=== PATIENT | female | born 1965 | race Two or more races ===

== ENCOUNTER 2017-02-19 16:55 | Emergency (ER) | payer MEDICAID ==
--- NOTE | 2017-02-19 16:59 | ED Physician Chart ---
Chief Complaint/HPI - Patient Information Date Seen:: 02/19/17 Time Seen:: 16:55 Chief Complaint:: Left facial injury early this morning. History of Present Illness:: Brought in by private auto because pt sustained L facial injury at about 0230 today. Pt fell on the street because she lost her balance when her L knee stiffened due to pain. No LOC. No other bodily injury or pain. No visual changes in terms of blurry vision or diplopia. No N/V. No weakness or numbness. No ataxia. Allergies:: NKA Vitals:: see Nurse Note. Historian:: Patient Family MD/PCP:: Dr. Kim LMP:: Postmenopausal Review:: Nurse's Note Reviewed Review of Systems - Review of Systems General/Constitutional: No fever, No weakness, No edema, No loss of appetite Skin: Bruising ( at L infraorbital region.) Head: No headache, No light-headedness Eyes: No loss of vision, No pain, No diplopia ENT: No earache, No nasal drainage, No sore throat, No tinnitus Neck: No neck pain, No swelling, No stiffness, No mass noted Cardio Vascular: No chest pain, No palpitations, No edema Pulmonary: No SOB, No cough, No wheezing GI: No nausea, No vomiting, No pain G/U: No dysuria, No hematuria Musculoskeletal: Bone or joint pain (L knee), No back pain Psychiatric: No prior psych history Hematopoietic: No lymphadenopathy Allergic/Immuno: No urticaria, No angioedema Neurological: No syncope, No focal symptoms, No weakness, No paresthesia, No headache, No seizure, No confusion, No vertigo Past Medical History - Past Medical History Past Medical History: No significant medical hx Family History: None Social History: Non Smoker, Alcohol (occasional), No Drug Use, , Lives Alone, Employed Employment:: [employer]. Surgical History: (x 3 with last one '06.) Medication: Reviewed Family Medical History - Family Member Mother History Unknown: Yes Physical Exam - Physical Examination General/Constitutional: Awake, Well-developed, well-nourished, Alert, No distress, GCS 15, Non-toxic appearing, Ambulatory Other Gen/Cons comments:: Breathes comfortably, speaks clearly, interacts normally, and ambulates without difficulty. Other Head comments:: There is L periorbital ecchymosis with mild tenderness at infraorbital region. No open wound, erythema, or bony tapering. No gross deformity or any significant swelling. Eyes: Lids, conjuctiva normal, PERRL, EOMI Other Eyes comments:: Fundi: flat disks. Skin: Well hydrated, No lymphadenopathy ENMT: External ears, nose nl, TM canals nl (No hemoptypanus.), Nasal exam nl, Lips, teeth, gums nl, Oropharynx nl Neck: Nontender, Full ROM w/o pain, No JVD, No nuchal rigidity, No mass, No stridor Respiratory: Nl effort/Exclusion, Clear to Auscultation, No Wheeze/Rhonchi/Rales Cardio Vascular: RRR, No murmur, gallop, rubs GI: No tenderness/rebounding/guarding, No organomegaly, Normal BS's, Nondistended Other GI comments:: Obese but soft. Other Extremities comments:: L knee: Vague diffuse anterior tenderness. No gross deformity, erythema, crepitus, swelling, or open wound. Good ROM. Negative Drawer's sign. Stable MCL and LCL. No detectable motor/sensory/vascular deficit. Neuro/Psych: Alert/oriented (oriented x 3.), DTR's symmetric, Normal sensory exam, Normal motor strength, Judgement/insight normal, Mood normal, Normal gait , No focal deficits Other Neuro/Psych comments:: CN II to XII are grossly intact. Cerebellar exam (F to N, TIAN): normal Labs/Radiology/EKG Results - Radiology Results Results: L knee X-ray (3v): Based on my interpretation, no acute fx or subluxation. Official report is pending. L maxillo-facial bone CT without contrast: STS left infraorbital. No fx. Official report per Dr. Mark Montanez, radiologist. ED Septic Shock - . Is Septic Shock (SBP<90, OR Lactate>4 mmol\L) present?: No Reassessment (Disposition) - Reassessment Reassessment:: 1814 Pt feels much better and is comfortable. Pt has been ambulatory without difficulty. CT report just became available. L knee X-ray and CT findings have been reviewed with pt. Pt requests to go home now and does not want further observation/management in hospital. Crutches were offered, but pt declined as she feels better and can walk comfortably. Aftercare instructions have been given. Reassessment Condition:: Improved - Diagnosis Diagnosis:: L facial contusion, stable and improved. L knee contusion, stable and improved. - Aftercare/Follow up Instructions Aftercare/Follow-Up Instructions:: Refer to Discharge Instructions Notes:: May take Tylenol 500 mg tab one tab po q6h prn pain. Avoid excessive wt bearing activities. Bruise care instructions given. Head injury instructions given. F/U with PCP Dr. Kim in one day for recheck. Return to ER immediately if condition worsens or if any further questions/problems. Medication Prescribed:: None - Patient Disposition Discharge/Transfer:: Home Time:: 18:25 Condition at Disposition:: Stable, Improved
--- NOTE | 2017-02-20 13:32 | Diagnostic Imaging Report ---
EXAM: CT examination of facial bones Total DLP equals 361 CTDI equals 17.4 HISTORY: Left facial injury COMPARISON: None FINDINGS: Multiple contiguous thin section the facial bones were obtained axial planes coronal/sagittal reconstructions. No prior studies available for comparison. The study demonstrates normal appearance of the mandible and maxilla. Zygomatic arches are intact. The paranasal sinuses are well aerated. The orbits are normal. The nasal bones are intact. Mild soft tissue swelling is noted in left infraorbital area. IMPRESSION: 1. Essentially unremarkable examination facial bones. 2. Soft tissue swelling left infraorbital area.
== END 2017-02-19 18:25 | disposition home or self-care (01) ==
LOC: ER 16:55
DX: S00.83XA Contusion of other part of head, initial encounter (principal); S80.02XA Contusion of left knee, initial encounter; W19.XXXA Unspecified fall, initial encounter; Y93.89 Activity, other specified; Y92.488 Other paved roadways as the place of occurrence of the external cause; Y99.8 Other external cause status
CPT/HCPCS: 70486-TC; 73562-TC-LT; Z7502; Z7610

== ENCOUNTER 2017-09-21 09:24 | Emergency (ER) | payer MEDICAID ==
--- NOTE | 2017-09-21 09:45 | ED Physician Chart ---
ED Chief Complaint/HPI - Patient Information Date Seen:: 09/21/17 Time Seen:: 09:30 Chief Complaint:: Fever History of Present Illness:: onset x 2 days of fever, sinus H/As, congestion, S/T, and cough; pt denies trauma, ALOC, LOC, AMS, E/As, visual or gait changes, dizziness, neck pain, weakness, vwertigo, C/P, SOB, Abd. Pain, A/N/V/D/C, chills, or urinary s/s; pt is eating and urinating well; pt last urinated 1/[address]ER Allergies:: Allergies Allergy/AdvReac Type Severity Reaction Status Date / Time No Known Allergies Allergy Verified 02/19/17 17:00 Historian:: Patient Review:: Nurse's Note Reviewed ED Review of Systems - Review of Systems General/Constitutional: Fever, No chills, No weight loss, No weakness, No diaphoresis, No edema, No loss of appetite Skin: No skin lesions, No rash, No bruising Head: No headache, No light-headedness Eyes: No loss of vision, No pain, No diplopia ENT: No earache, Nasal drainage, Sore throat, No tinnitus Neck: No neck pain, No swelling, No thyromegaly, No stiffness, No mass noted Cardio Vascular: No chest pain, No palpitations, No PND, No orthopnea, No edema Pulmonary: No SOB, Cough, No sputum, No wheezing GI: No nausea, No vomiting, No diarrhea, No pain, No melena, No hematochezia, No constipation, No hematemesis G/U: No dysuria, No frequency, No hematuria, No nacturia Inclusion Special Education Teacher: No vaginal discharge, No abnormal vaginal bleed, No contraction Musculoskeletal: No bone or joint pain, No back pain, No muscle pain Endocrine: No polyuria, No polydipsia Psychiatric: No prior psych history, No depression, No anxiety, No suicidal ideation, No homicidal ideation, Visual hallucination Hematopoietic: No bruising, No lymphadenopathy Allergic/Immuno: No urticaria, No angioedema Neurological: No syncope, No focal symptoms, No weakness, No paresthesia, No headache, No seizure, No dizziness, No confusion, No vertigo ED Past Medical History - Past Medical History Obtainable: Yes Past Medical History: No significant medical hx Family History: HTN Social History: Non Smoker, No Alcohol, No Drug Use, , Employed Surgical History: None Psychiatricy History: None Medication: Reviewed Family Medical History - Family Member Mother History Unknown: Yes Ethnicity: Living Status: Still Living Grandfather Ethnicity: Living Status: Hx Family Diabetes: Yes ED Physical Exam - Physical Examination General/Constitutional: Awake, Well-developed, well-nourished, Alert, No distress, GCS 15, Non-toxic appearing, Ambulatory Head: Atraumatic Eyes: Lids, conjuctiva normal, PERRL, EOMI Skin: Nl inspection, No rash, No skin lesions, No ecchymosis, Well hydrated, No lymphadenopathy ENMT: External ears, nose nl, TM canals nl, Nasal exam nl, Lips, teeth, gums nl , Tonsils nl Other ENMT comments:: + Maxillary Sinus Tenderness; + Nasal Congestion; Pharynx: Injected; no exudates ; no abscesses; no FBs; no airway obstruction Neck: Nontender, Full ROM w/o pain, No JVD, No nuchal rigidity, No bruit, No mass, No stridor Other Neck comments:: Supple; no meningeal signs; no cervical tenderness; no bruits Respiratory: Nl effort/Exclusion, Clear to Auscultation, No Wheeze/Rhonchi/Rales Cardio Vascular: RRR, No murmur, gallop, rubs, NL S1 S2, Carotid/Femoral/Distal pulses equal bilaterally GI: No tenderness/rebounding/guarding, No organomegaly, No hernia, Normal BS's, Nondistended, No mass/bruits, No McBurney tenderness Other GI comments:: no pulsatile masses : No CVA tenderness Extremities: No tenderness or effusion, Full ROM, normal strength in all extremities, No edema, Normal digits & nails Neuro/Psych: Alert/oriented, DTR's symmetric, Normal sensory exam, Normal motor strength, Judgement/insight normal, Mood normal, Normal gait, No focal deficits Misc: Normal back, No paraspinal tenderness ED Septic Shock - . Is Septic Shock (SBP<90, OR Lactate>4 mmol\L) present?: No ED Reassessment (Disposition) - Reassessment Reassessment:: pt tolerated po fluids well in ER; pt is asymptomatic upon discharge Reassessment Condition:: Improved - Diagnosis Diagnosis:: Sinus Headaches; Congestion; Sinusitis; Cough; Bronchitis; Sore Throat; Pharyngitis; Fever; URI - Aftercare/Follow up Instructions Aftercare/Follow-Up Instructions:: Counseled pt regarding lab results/diagnosis & need follow up, Refer to Discharge Instructions, Counseled pt & family regarding lab results/diagnosis & need follow up Medication Prescribed:: Rx: Amoxicillin 500mg po tid x 10 days; Tylenol/Phenergan Cough Syrup/Cool Mist Vaporizer; Salt Water Gargles; take all medications as prescribed; encourage fluids - Patient Disposition Discharge/Transfer:: Home Condition at Disposition:: Stable, Improved (RTER prn if existing s/s reoccur and/or get worse and/or any other new s/s occur; ACIs given for all above Dx; Refer to ENT Specialist/Neurologist/Talent Program Manager CARLOS; F/U with PMD in one day or prn; RTER prn if concerned)
== END 2017-09-21 10:05 | disposition home or self-care (01) ==
LOC: ER 09:24
DX: J20.9 Acute bronchitis, unspecified (principal); G44.89 Other headache syndrome; J01.90 Acute sinusitis, unspecified; J06.9 Acute upper respiratory infection, unspecified; J02.9 Acute pharyngitis, unspecified
CPT/HCPCS: Z7502

== ENCOUNTER 2018-08-19 13:20 | Emergency (ER) | payer MEDICAID ==
--- NOTE | 2018-09-14 07:39 | ED Physician Chart ---
ED Chief Complaint/HPI - Patient Information Date Seen:: 08/19/18 Time Seen:: 13:28 Chief Complaint:: left upper jaw pain History of Present Illness:: PATIENT PRESENTS TO THE ER WITH LEFT UPPER JAW PAIN FOR TWO DAYS; NO TRAUMA, NO OTHER REMARKABLE S/S Has known that she has a problem with her left upper molar for years. Allergies:: Allergies Allergy/AdvReac Type Severity Reaction Status Date / Time No Known Allergies Allergy Verified 09/21/17 09:49 Historian:: Patient Review:: Nurse's Note Reviewed ED Review of Systems - Review of Systems General/Constitutional: No fever, No chills, No weight loss, No weakness, No diaphoresis, No edema, No loss of appetite Skin: No skin lesions, No rash, No bruising Head: No headache, No light-headedness Eyes: No loss of vision, No pain, No diplopia ENT: Other (left upper jaw and tooth pain) Neck: No neck pain, No swelling, No thyromegaly, No stiffness, No mass noted Cardio Vascular: No chest pain, No palpitations, No PND, No orthopnea, No edema Pulmonary: No SOB, No cough, No sputum, No wheezing GI: No nausea, No vomiting, No diarrhea, No pain, No melena, No hematochezia, No constipation, No hematemesis G/U: No dysuria, No frequency, No hematuria Musculoskeletal: No bone or joint pain, No back pain, No muscle pain Endocrine: No polyuria, No polydipsia Psychiatric: No prior psych history, No depression, No anxiety, No suicidal ideation Hematopoietic: No bruising, No lymphadenopathy Allergic/Immuno: No urticaria, No angioedema Neurological: No syncope, No focal symptoms, No weakness, No paresthesia, No headache, No seizure, No dizziness, No confusion, No vertigo ED Past Medical History - Past Medical History Obtainable: Yes Past Medical History: No significant medical hx Family Medical History - Family Member Mother History Unknown: Yes Ethnicity: Living Status: Still Living Grandfather History Unknown: Yes Ethnicity: Living Status: Hx Family Diabetes: Yes ED Physical Exam - Physical Examination General/Constitutional: Awake, Well-developed, well-nourished, Alert, GCS 15, Non-toxic appearing, Ambulatory Other Gen/Cons comments:: in slight pain Head: Atraumatic Eyes: Lids, conjuctiva normal, PERRL, EOMI Skin: Nl inspection, No rash, No skin lesions, No ecchymosis, Well hydrated, No lymphadenopathy ENMT: External ears, nose nl, TM canals nl, Nasal exam nl, Lips, teeth, gums nl , Oropharynx nl, Tonsils nl Other ENMT comments:: broken left upper molar. no evidence of abscess or pus. No swelling. no tenderness over the maxillary sinus. Neck: Nontender, Full ROM w/o pain, No nuchal rigidity, No stridor Respiratory: Nl effort/Exclusion, Clear to Auscultation, No Wheeze/Rhonchi/Rales Cardio Vascular: RRR, No murmur, gallop, rubs, NL S1 S2 GI: No tenderness/rebounding/guarding, No organomegaly, No hernia, Normal BS's, Nondistended, No mass/bruits, No McBurney tenderness : No CVA tenderness Extremities: No tenderness or effusion, Full ROM, normal strength in all extremities, No edema, Normal digits & nails Neuro/Psych: Alert/oriented, DTR's symmetric, Normal sensory exam, Normal motor strength, Judgement/insight normal, Mood normal, Normal gait, No focal deficits Misc: Normal back, No paraspinal tenderness ED Assessment - Assessment General Assessment: patient tolerated Toradol and Penicillin injections well. CURES printout run which is negative. ED Septic Shock - . Is Septic Shock (SBP<90, OR Lactate>4 mmol\L) present?: No ED Reassessment (Disposition) - Reassessment Reassessment Condition:: Improved - Aftercare/Follow up Instructions Aftercare/Follow-Up Instructions:: Refer to Discharge Instructions Notes:: follow up with your dentist. Medication Prescribed:: Penicillin,Tylenol # 3 (after CURES run), Peridex. - Patient Disposition Discharge/Transfer:: Home Condition at Disposition:: Stable, Improved
== END 2018-08-19 14:27 | disposition home or self-care (01) ==
LOC: ER 13:20
DX: K08.89 Other specified disorders of teeth and supporting structures (principal); R68.84 Jaw pain
CPT/HCPCS: 99283; 96372 ×2; J0561; J1885; Z7502